=== PATIENT | male | born 1990 | race Caucasian/White ===

== ENCOUNTER 2024-06-05 11:53 | Emergency (ER) | payer SELFPAY ==
[2024-06-05 11:58] VITALS: BP 161/99; PULSE 82; TEMP 36.4; O2SAT 99; BMI 30.5
--- NOTE | 2024-06-05 12:16 | ECG_ITS ---
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 Measurements Intervals [place] Rate: 61 P: 52 GA: 204 QRS: 44 QRSD: 80 T: 47 QT: 378 QTc: 381 Interpretive Statements 1100 Sinus rhythm 2420 RSR (QR) in lead V1/V2, consistent with right ventricular conduction delay 9130 borderline ECG No previous ECG available for comparison Electronically Signed On 06-06-2024 19:17:48 EDT by BRUCE JURADO M.D.
--- NOTE | 2024-06-05 12:18 | ED.GENADUL1 ---
HPI HPI - General Adult General Chief complaint: Abdominal Pain Stated complaint: ABD/CHEST PAIN Time Seen by Provider: 06/05/24 12:07 Source: patient Mode of arrival: walk-in History of Present Illness HPI narrative: 34-year-old male presents for abdominal pain. It is across his upper abdomen, bilaterally and in the epigastric area and has been present for 3 to 4 days. He took some [id number] medications including Pepto-Bismol but it did not help. He is worried about his gallbladder. No fever but he has been nauseous and had a little bit of vomiting, stomach acid. No constipation or diarrhea. The pain is continuous Related Data Previous Rx's ?Medication ?Instructions ?Recorded esomeprazole magnesium 20 mg 20 mg PO DAILY #20 caps 06/05/24 capsule,delayed release (Nexium) Allergies Allergy/AdvReac Type Severity Reaction Status Date / Time Penicillins AdvReac Severe Anaphylaxis Verified 06/05/24 12:02 Opioid HPI Opioid Management Most Recent Opioid Data: No Data to Display Review of Systems ROS Narrative A ten point review of systems is negative except as noted above. PFSH PFSH Social History Little interest or pleasure in doing things: not at all Feeling down, depressed, or hopeless: not at all Exam Narrative Exam Narrative: Nurses note and vital signs reviewed and patient is not hypoxic. General: The patient appears mildly uncomfortable and in no acute respiratory distress Skin: Warm, dry, no pallor noted. There is no rash noted. Head: Normocephalic, atraumatic Eye: Normal conjunctiva, no drainage Ears, Nose, Mouth, and Throat: oral mucosa is moist. Nares patent. Cardiovascular: Regular Rate and Rhythm Respiratory: Patient is in no distress, no accessory muscle use, lungs are clear to auscultation, no wheezing, rales or rhonchi Back: non-tender GI: Soft and nondistended. Tenderness across the upper abdomen without masses. Musculoskeletal: The patient has no evidence of calf tenderness, no pitting edema, symmetrical pulses noted bilaterally Neurological: A&O, normal speech Psychiatric: Cooperative Constitutional Vital Signs, click to edit/add: Last Vital Signs Temp 97.6 F 06/05/24 11:58 Pulse 82 06/05/24 11:58 Resp 18 06/05/24 11:58 BP 161/99 H 06/05/24 11:58 Pulse Ox 99 06/05/24 11:58 O2 Del Method Room Air 06/05/24 11:58 Course Vital Signs Vital signs: Vital Signs Temperature 97.6 F 06/05/24 11:58 Pulse Rate 82 06/05/24 11:58 Respiratory Rate 18 06/05/24 11:58 Blood Pressure 161/99 H 06/05/24 11:58 Pulse Oximetry 99 06/05/24 11:58 Oxygen Delivery Method Room Air 06/05/24 11:58 Temperature 97.6 F 06/05/24 11:58 Pulse Rate 82 06/05/24 11:58 Respiratory Rate 18 06/05/24 11:58 Blood Pressure 161/99 H 06/05/24 11:58 Pulse Oximetry 99 06/05/24 11:58 Oxygen Delivery Method Room Air 06/05/24 11:58 Medical Decision Making MDM Narrative Medical decision making narrative: His workup here is negative. He was given IV Pepcid and is prescribed Nexium. To follow-up with his doctor particularly if symptoms do not resolve. No evidence of gallbladder disease. Treatment diagnosis and follow-up were discussed with the patient. Differential Diagnosis Differential Diagnosis: Biliary colic, pancreatitis, hepatitis, colitis Lab Data Lab results reviewed: Yes I reviewed the patient's lab results Labs: Lab Results 06/05/24 06/05/24 Range/Units 12:20 12:30 WBC 4.9 (4.0-11.0) 10^3/uL RBC 5.45 (4.70-6.10) 10^6/uL Hgb 17.0 (14.0-18.0) g/dL Hct 48.1 (42.0-54.0) % MCV 88.3 (80.0-94.0) fL MCH 31.2 (25.9-34.0) pg MCHC 35.3 H (29.9-35.2) g/dL RDW 12.0 (11.0-15.0) % Plt Count 292 (150-450) 10^3/uL MPV 9.0 L (9.5-13.5) fL Neut % (Auto) 48.6 (43.0-75.0) % Lymph % (Auto) 40.6 (20.5-60.0) % [place] % (Auto) 8.4 (1.7-12.0) % Eos % (Auto) 1.2 (0.9-7.0) % Baso % (Auto) 0.8 (0.2-2.0) % Neut # (Auto) 2.4 (1.4-6.5) 10^3/uL Lymph # (Auto) 2.0 (1.2-3.8) 10^3/uL [place] # (Auto) 0.4 (0.3-0.8) 10^3/uL Eos # (Auto) 0.1 (0.0-0.7) 10^3/uL Baso # (Auto) 0.0 (0.0-0.1) 10^3/uL Abs Immat Gran (auto) 0.02 (0.00-0.03) 10^3/uL Imm/Tot Granulo (auto) 0.4 (0.0-0.5) % Sodium 141 (136-145) mmol/L Potassium 4.2 (3.5-5.1) mmol/L Chloride 105 (98-107) mmol/L Carbon Dioxide 29.2 (21.0-32.0) mmol/L Anion Gap 11.0 BUN 14.0 (7.0-18.0) mg/dL Creatinine 1.16 (0.70-1.30) mg/dL Est GFR ( Amer) >60 (>=60 mL/min/1.73m^2) Est GFR (Non-Af Amer) >60 (>=60 mL/min/1.73m^2) BUN/Creatinine Ratio 12.1 Glucose 96 (74-106) mg/dL Calcium 9.0 (8.5-10.1) mg/dL Total Bilirubin 0.5 (0.2-1.0) mg/dL Direct Bilirubin 0.1 (0.0-0.2) mg/dL AST 24 (15-37) U/L ALT 31 (16-63) U/L Alkaline Phosphatase 113 (46-116) U/L Total Protein 7.7 (6.4-8.2) g/dL Albumin 4.0 (3.4-5.0) g/dL Globulin 3.7 g/dL Albumin/Globulin Ratio 1.1 Amylase 63 (25-115) U/L Lipase 29.0 (16.0-77.0) U/L Urine Color Lt. yellow (YELLOW) Urine Clarity Clear (CLEAR) Urine pH 7.5 (5.0-9.0) Ur Specific [place] 1.010 (1.005-1.025) Urine Protein Negative (NEG/TRACE) mg/dL Urine Glucose (UA) Negative (NEGATIVE) mg/dL Urine Ketones Negative (NEGATIVE) mg/dL Urine Occult Blood Negative (NEGATIVE) Urine Nitrite Negative (NEGATIVE) Urine Bilirubin Negative (NEGATIVE) Urine Urobilinogen 0.2 (0.2-1.0) EU/dL Ur Leukocyte Esterase Negative (NEGATIVE) Urine RBC None seen (0-2) #/HPF Urine WBC None seen (NONE SEEN) #/HPF Ur Squamous Epith Cells None seen (NONE/RARE) #/LPF Urine Crystals None seen (None Seen) #/HPF Urine Bacteria None seen (NONE SEEN) #/HPF Urine Casts None seen (NONE SEEN) #/LPF Urine Mucus None seen (NONE SEEN) Ur Culture Indicated? No Imaging Data CT abdomen, right upper quadrant ultrasound: Radiologist's impression: CT scan of abdomen: Negative study. In particular the radiologist remarked that the gallbladder appears unremarkable. Gallbladder ultrasound: No hydronephrosis or gallstones or biliary dilatation ECG Data Attestation: I personally reviewed and interpreted this ECG as follows: (EKG on my interpretation shows normal sinus rhythm with rate of 61 and no acute) Discharge Plan Discharge Chief Complaint: Abdominal Pain Clinical Impression: Epigastric pain Patient Disposition: Home, Self-Care Time of Disposition Decision: 14:35 Condition: Good Mode of Transportation: Private Vehicle Prescriptions / Home Meds: New esomeprazole magnesium [Nexium] 20 mg capsule,delayed release(DR/EC) 20 mg PO DAILY Qty: 20 0RF Print Language: Com[place] Instructions: Epigastric Pain (ED) Referrals: Physician,Non-Staff, MD [Primary Care Provider] - 1 week
[2024-06-05 12:38] LABS: Basophils Percent Auto 0.8 % (0.2-2.0); Eosinophils Absolute Auto 0.1 10^3/uL (0.0-0.7); Eosinophils Percent Auto 1.2 % (0.9-7.0); Hematocrit 48.1 % (42.0-54.0); Immature Granulocytes Abs Auto 0.02 10^3/uL (0.00-0.03); Immature Granulocytes Pct Auto 0.4 % (0.0-0.5); Lymphocytes Percent Auto 40.6 % (20.5-60.0); Mean Corpuscular HGB Conc 35.3 g/dL (29.9-35.2); Mean Corpuscular Hemoglobin 31.2 pg (25.9-34.0); Mean Corpuscular Volume 88.3 fL (80.0-94.0); Monocytes Absolute Auto 0.4 10^3/uL (0.3-0.8); Monocytes Percent Auto 8.4 % (1.7-12.0); Neutrophils Absolute Auto 2.4 10^3/uL (1.4-6.5); Neutrophils Percent Auto 48.6 % (43.0-75.0); Platelet Count 292 10^3/uL (150-450); Red Blood Count 5.45 10^6/uL (4.70-6.10); White Blood Count 4.9 10^3/uL (4.0-11.0)
[2024-06-05 12:39] LABS: Bilirubin Urine NEGATIVE (NEGATIVE); Blood Urine NEGATIVE (NEGATIVE); Clarity Urine CLEAR (CLEAR); Color Urine LT. YELLOW (YELLOW); Glucose Urine UA NEGATIVE (NEGATIVE); Ketones Urine NEGATIVE (NEGATIVE); Leukocyte Esterase Urine NEGATIVE (NEGATIVE); Nitrite Urine NEGATIVE (NEGATIVE); Protein Urine NEGATIVE (NEG/TRACE); Urobilinogen Urine 0.2 EU/dL (0.2-1.0); pH Urine 7.5 (5.0-9.0)
[2024-06-05 12:50] LABS: Bacteria Urine NONE SEEN #/HPF (NONE SEEN); Cast Seen? NONE SEEN #/LPF (NONE SEEN); Crystals Seen? None Seen #/HPF (None Seen); Mucus Urine NONE SEEN (NONE SEEN); RBC Urine NONE SEEN #/HPF (0-2); Squamous Epithelial Cell Urine NONE SEEN #/LPF (NONE/RARE); Urine Culture Indicated NO; WBC Urine NONE SEEN #/HPF (NONE SEEN)
[2024-06-05 12:52] LABS: Alanine Aminotransferase 31 U/L (16-63); Albumin Globulin Ratio 1.1; Alkaline Phosphatase 113 U/L (46-116); Amylase 63 U/L (25-115); Aspartate Amino Transferase 24 U/L (15-37); BUN Creatinine Ratio 12.1; Bilirubin Direct 0.1 mg/dL (0.0-0.2); Bilirubin Total 0.5 mg/dL (0.2-1.0); Carbon Dioxide 29.2 mmol/L (21.0-32.0); Chloride 105 mmol/L (98-107); Estimated GFR (African America >60 (>=60 mL/min/1.73m^2); Estimated GFR (Non-African Ame >60 (>=60 mL/min/1.73m^2); Globulin 3.7 g/dL; Glucose 96 mg/dL (74-106); Potassium 4.2 mmol/L (3.5-5.1); Sodium 141 mmol/L (136-145); Total Protein 7.7 g/dL (6.4-8.2)
[2024-06-05] MEDS: FAMOTIDINE/PF 20 MG/2 ML VIAL IV (13:03)
[2024-06-05 14:36] VITALS: BP 133/80; PULSE 56; O2SAT 97
== END 2024-06-05 14:49 | disposition home or self-care (01) ==
PROVIDERS: Emergency Provider Emergency Medicine
DX: R10.13 Epigastric pain (principal)
CPT/HCPCS: 36415; 74177; 76705; 80048; 80076; 81001; 82150; 83690; 85025; 93005; 96374; 99285; J3490; Q9967